=== PATIENT | female | born 1950 | race Caucasian/White ===

== ENCOUNTER → 2016-12-31 | Outpatient (CLI) | payer OTHER | LOC: FIMAGING 12:21 | DX: Z12.31 Encounter for screening mammogram for malignant neoplasm of breast (principal) | CPT/HCPCS: G0202 ==

== ENCOUNTER 2017-01-22 13:55 | Emergency (ER) | payer OTHER ==
[2017-01-22 14:06] VITALS: RESP 16
--- NOTE | 2017-01-22 14:07 | CPEKG ---
Heart Rate: 84 RR Interval: 714 P-R Interval: 144 QRSD Interval: 86 QT Interval: 384 QTC Interval: 454 P [place]: -5 QRS [place]: 26 T Wave [place]: -49 EKG Severity - BORDERLINE ECG - EKG Impression: SINUS RHYTHM EKG Impression: BORDERLINE T ABNORMALITIES, INFERIOR LEADS Electronically Signed By: Beverly Banegas 22-Jan-2017 15:41:56
--- NOTE | 2017-01-22 14:13 | EDPHY ---
H & P Stated Complaint: CP, R SIDED NECK PAIN, SOB Time Seen by Provider: 01/22/17 14:03 HPI/ROS: CHIEF COMPLAINT: Right chest pain HISTORY OF PRESENT ILLNESS: The patient is a 66-year-old female presenting with acute right neck, shoulder, and chest pain. The patient developed a pain to the right side of her neck. This pain remained constant throughout the day and progressively worsened. The pain now radiates into her right shoulder and chest. She states it is a freezing pain "like when you eat ice cream too fast". The patient has a slight cough which has been ongoing for several months. She notes some shortness of breath. She denies fever or recent sickness. No right arm numbness or weakness. She took 600mg Ibuprofen prior to arrival. The patient had a cardiac catheterization in 2009 that did not show any significant coronary artery disease or atherosclerosis. She was started on a diuretic following that study with the thought that a diuretic would lower her right and left heart pressures and help with her shortness of breath. REVIEW OF SYSTEMS: A 10 point review of systems was performed and is negative with the exception of the elements mentioned in the history of present illness. Source: Patient Exam Limitations: No limitations - Personal History Current Tetanus Diphtheria and Acellular Pertussis (TDAP): Yes Tetanus Vaccine Date: 2010 - Medical/Surgical History Hx Asthma: Yes Hx Chronic Respiratory Disease: No Hx Diabetes: No Hx Cardiac Disease: No Hx Renal Disease: No Hx Cirrhosis: No Hx Alcoholism: No Hx HIV/AIDS: No Hx Splenectomy or Spleen Trauma: No Other PMH: Recent back injury, hypertension, allergies, mood disorder/depression , anxiety, Crohn's disease. Past Surgical History: Cholecystectomy, Tonsilectomy, Hysterectomy - Family History Significant Family History: No pertinent family hx (No family history of coronary artery disease.) - Social History Smoking Status: Never smoked Additional Social History: Retired. 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 Patient lives alone with cat named Christine. No tobacco or alcohol use. - Physical Exam Exam: General Appearance: Alert, no acute distress. Eyes: Pupils equal and round, no conjunctival injection, no discharge. ENT, Mouth: Mucous membranes are moist, no oropharyngeal erythema or edema. Neck: No lymphadenopathy, supple. No jugular venous distention. Respiratory: Lungs are clear to auscultation; no wheezes, rales, or rhonchi. Cardiovascular: Regular rate and rhythm; no murmur, rub, or gallop. Gastrointestinal: Abdomen is soft and non tender, no masses or organomegaly, bowel sounds normal. Skin: Warm and dry, no rashes, normal color. Back: Nontender to palpation over the thoracolumbar spine. Extremities: No lower extremity edema, no calf tenderness or swelling. Neurological: Alert and oriented. Moving all four extremities easily and equally. Psychiatric: Normal affect. Constitutional: Initial Vital Signs Temperature (C) 36.3 C 01/22/17 14:05 Heart Rate 86 01/22/17 14:05 Respiratory Rate 16 01/22/17 14:05 Blood Pressure 129/92 H 01/22/17 14:05 O2 Sat (%) 94 01/22/17 14:05 O2 Delivery Mode Room Air Allergies/Adverse Reactions: propranolol [Propranolol] Allergy (Intermediate, Verified 01/22/17 14:08) COGNITIVE CHANGES divalproex sodium [From Depakote] Allergy (Mild, Verified 01/22/17 14:08) NAUSEA ibuprofen Allergy (Verified 01/22/17 14:08) Other-Enter Comments Home Medications: Medication Instructions Recorded Buspar (*) 01/22/17 Cetirizine 01/22/17 Cymbalta 01/22/17 Estradiol 01/22/17 Hydrochlorothiazide 01/22/17 Lialda 01/22/17 Wellbutrin Sr 01/22/17 Medical Decision Making - Diagnostics EKG Interpretation: The 12 lead EKG was interpreted by myself. See hard copy and/or "tracemaster" electronic copy for interpretation: Borderline T-wave abnormalities. 2nd EKG was performed. 12 lead EKG is interpreted in Trace master View by emergency department physician. No acute ischemic changes. Imaging Results: Imaging Impressions Chest X-Ray 01/22/17 14:16 Impression: No significant radiographic abnormality. Specifically, a source for chest pain is not identified. ED Course/Re-evaluation: The patient is a 66-year-old female presenting with acute right neck and chest pain. The patient reports a constant pain in the right side of her neck and jaw that radiates into her right chest. No associated right arm weakness or numbness. No midline posterior neck pain. Patient has a normal exam. She received 324mg Aspirin PO in the ED. Plan for cardiac workup. Plan to check troponin and lab work. Chest x-ray is pending. Right-sided chest and jaw pain persists. Repeat EKG without acute ischemic changes. Troponin is normal. She reports to me at around 3:00 p.m. that the pain is pleuritic. D-dimer ordered. D-dimer is normal. I do not suspect PE. Chest x-ray does not show evidence of infection/infiltrate. No pneumothorax. I spoke with the patient at some length. She does continue with some right upper chest pain that extends into her neck and lower jaw. A re-examined her teeth, as she is scheduled to have the dental cap replaced this week. They is no evidence of dental infection and no pain with percussion over teeth on the right. She does not have neck pain or radicular signs/symptoms. I would not expect this right-sided pain to be cardiac in etiology, however, that remains a possibility. Her HEART score is 2, giving her a 1.7% risk of a major cardiac event within 6 weeks. She and I discussed this study. I offered overnight hospitalization with serial cardiac enzymes. She is not interested in hospitalization and feels comfortable returning home. I think that she is safe to do so. She understands the danger signs that should prompt her to call 911. She will follow up with her primary care physician within the next 72 hours. Differential Diagnosis: Chest pain including but not limited to myocardial ischemia, pulmonary embolus, chest wall pain, pleural inflammation and pulmonary infectious causes. - Data Points Laboratory Results: Laboratory Results 01/22/17 14:17 01/22/17 14:17 01/22/17 01/22/17 01/22/17 14:17 14:17 14:17 WBC 8.82 10^3/uL 10^3/uL (3.80-9.50) RBC 4.93 10^6/uL 10^6/uL (4.18-5.33) Hgb 13.8 g/dL g/dL (12.6-16.3) Hct 40.6 % % (38.0-47.0) MCV 82.4 fL fL (81.5-99.8) MCH 28.0 pg pg (27.9-34.1) MCHC 34.0 g/dL g/dL (32.4-36.7) RDW 14.5 % % (11.5-15.2) Plt Count 283 10^3/uL 10^3/uL (150-400) MPV 9.5 fL fL (8.7-11.7) Neut % (Auto) 71.6 % % (39.3-74.2) Lymph % (Auto) 21.7 % % (15.0-45.0) [place] % (Auto) 6.1 % % (4.5-13.0) Eos % (Auto) 0.1 % L % (0.6-7.6) Baso % (Auto) 0.3 % % (0.3-1.7) Nucleat RBC Rel Count 0.0 % % (0.0-0.2) Absolute Neuts (auto) 6.31 10^3/uL 10^3/uL (1.70-6.50) Absolute Lymphs (auto) 1.91 10^3/uL 10^3/uL (1.00-3.00) Absolute Monos (auto) 0.54 10^3/uL 10^3/uL (0.30-0.80) Absolute Eos (auto) 0.01 10^3/uL L 10^3/uL (0.03-0.40) Absolute Basos (auto) 0.03 10^3/uL 10^3/uL (0.02-0.10) Absolute Nucleated RBC 0.00 10^3/uL 10^3/uL (0-0.01) Immature Gran % 0.2 % % (0.0-1.1) Immature Gran # 0.02 10^3/uL 10^3/uL (0.00-0.10) D-Dimer < 0.27 ug/mLFEU ug/mLFEU (0.00-0.50) Sodium 140 mEq/L mEq/L (134-144) Potassium 3.3 mEq/L L mEq/L (3.5-5.2) Chloride 100 mEq/L mEq/L (97-110) Carbon Dioxide 26 mEq/l mEq/l (22-31) Anion Gap 14 mEq/L mEq/L (8-16) BUN 15 mg/dL mg/dL (7-23) Creatinine 0.8 mg/dL mg/dL (0.6-1.0) Estimated GFR > 60 Glucose 109 mg/dL H mg/dL (70-100) Calcium 8.8 mg/dL mg/dL (8.5-10.4) Troponin I < 0.012 ng/mL ng/mL (0-0.034) Medications Given: Discontinued Medications Aspirin (Aspirin) 324 mg PO EDNOW ONE Stop: 01/22/17 14:16 Last Admin: 01/22/17 14:21 Dose: 324 mg Departure - Departure Disposition: Home, Routine, Self-Care Clinical Impression: Chest pain Qualifiers: Chest pain type: unspecified Qualified Code(s): R07.9 - Chest pain, unspecified Condition: Good Instructions: Chest Pain (ED) Additional Instructions: If you develop fever, shortness of breath, worsening chest pain, change in location of your pain, lightheadedness or dizziness, nausea, any new or concerning symptoms--you should call 911 and be re-evaluated. I recommend that you follow up with your primary care provider within the next 72 hours. Call tomorrow to schedule an appointment. Referrals: Amrita Salazar, INCREMENT MANAGER [Primary Care Provider] - As per Instructions Report Scribed for: Beverly Banegas Report Scribed by: Steph Parnell Date of Report: 01/22/17 Time of Report: 14:13 Physician Review and Approval Statement: 01/22/17 14:36 Portions of this note were transcribed by the spanish medical interpreter. I, Dr. Beverly Banegas, personally performed the history, physical exam, and medical decision- making; and confirmed the accuracy of the information in the transcribed note.
[2017-01-22] MEDS ORDERED: ASPIRIN 81 MG CHEWABLE TAB PO ONE (14:15)
[2017-01-22 14:26] LABS: % IMMATURE GRANULYOCYTES 0.2 % (0.0-1.1); ABSOLUTE IMMATURE GRANULOCYTES 0.02 10^3/uL (0.00-0.10); ADD DIFF? NO; ADD MORPH? NO; ADD SCAN? NO; ATYPICAL LYMPHOCYTE FLAG 0 (0-99); FRAGMENT RBC FLAG 0 (0-99); HEMATOCRIT 40.6 % (38.0-47.0); HEMOGLOBIN 13.8 g/dL (12.6-16.3); LEFT SHIFT FLG 0 (0-99); LIPEMIA HEMOLYSIS FLAG 90 (0-99); MEAN CELL VOLUME 82.4 fL (81.5-99.8); MEAN PLATELET VOLUME 9.5 fL (8.7-11.7); PLATELET CLUMPS FLAG 0 (0-99); PLATELET COUNT 283 10^3/uL (150-400); RED BLOOD CELL COUNT 4.93 10^6/uL (4.18-5.33); RED CELL DISTRIBUTION WIDTH 14.5 % (11.5-15.2)
[2017-01-22 14:43] LABS: ANION GAP 14 mEq/L (8-16); CALCIUM 8.8 mg/dL (8.5-10.4); CARBON DIOXIDE 26 mEq/l (22-31); CHLORIDE 100 mEq/L (97-110); CREATININE 0.8 mg/dL (0.6-1.0); GLOMERULAR FILTRATION RATE > 60; GLUCOSE 109 mg/dL (70-100); POTASSIUM 3.3 mEq/L (3.5-5.2); SODIUM 140 mEq/L (134-144)
[2017-01-22 14:55] LABS: TROPONIN I < 0.012 ng/mL (0-0.034)
--- NOTE | 2017-01-22 15:47 | CPEKG ---
Heart Rate: 79 RR Interval: 759 P-R Interval: 140 QRSD Interval: 84 QT Interval: 376 QTC Interval: 432 P [place]: -13 QRS [place]: 52 T Wave [place]: 267 EKG Severity - NORMAL ECG - EKG Impression: SINUS RHYTHM Electronically Signed By: Amara Coles 24-Jan-2017 14:10:35
[2017-01-22 16:15] VITALS: BP 138/72; PULSE 80; TEMP 97.7; O2SAT 94
== END 2017-01-22 16:15 | disposition home or self-care (01) ==
LOC: CED 13:55
DX: R07.9 Chest pain, unspecified (principal); I10 Essential (primary) hypertension
CPT/HCPCS: 71020-PO; 80048-PO; 84484-PO; 85025-PO; 85378-PO

== ENCOUNTER → 2018-02-26 | Outpatient (CLI) | payer OTHER, MEDICARE | LOC: FIMAGING 11:22 | PROVIDERS: ATTEND Nurse Practitioner | DX: Z12.31 Encounter for screening mammogram for malignant neoplasm of breast (principal) ==

== ENCOUNTER → 2018-06-02 | Outpatient (CLI) | payer OTHER, MEDICARE | LOC: CIMAGING 10:37 | PROVIDERS: ATTEND Nurse Practitioner | DX: R93.7 Abnormal findings on diagnostic imaging of other parts of musculoskeletal system (principal) | CPT/HCPCS: 72100-PO; 72170-PO ==

== ENCOUNTER 2018-06-27 17:55 | Emergency (ER) | payer OTHER, MEDICARE ==
[2018-06-27] MEDS ORDERED: NS 500 ML IV ONE (18:26)
--- NOTE | 2018-06-27 18:44 | EDPHY ---
H & P Stated Complaint: irregular heart beat Time Seen by Provider: 06/27/18 18:12 HPI/ROS: CHIEF COMPLAINT: Palpitations HISTORY OF PRESENT ILLNESS: 67-year-old female presents emergency department reporting that for the last 3-4 days she has had multiple episodes of palpitations. She describes a regular heart rate and then a pause and a delayed before the next beat. She also describes episodes where her heart feels that it is beating fast for 2-3 beats. She has not had any chest pain, shortness of breath, lightheadedness, dizziness, or fainting during these episodes. She has not had prolonged episodes of palpitations. She does report she has a history of atrial fibrillation which happened a number of years ago and knee is episodes of palpitations are not as prolonged as her atrial fibrillation episode. She does not take any anticoagulants. Patient denies fevers or chills. She does have a history of asthma and states she has been feeling short of breath, perhaps secondary to medication of a burst pipe in her home. She has been using her albuterol inhaler more frequently. She also has a history of Crohn's disease but does not use steroids for that. No fever, chills, chest pain, vomiting, diarrhea, urinary complaints, headache, lightheadedness. REVIEW OF SYSTEMS: A comprehensive 10 system review of systems was reviewed and is otherwise negative aside from elements mentioned in the history of present illness. PAST MEDICAL HISTORY: Crohn's disease, asthma, depression, anxiety. No history of DVTs or PEs. No family history of DVTs or PEs. SOCIAL HISTORY: Nonsmoker, no alcohol, no illicit drugs. VITAL SIGNS Reviewed by me. Regular rhythm noted on the monitor with occasional PACs. GENERAL: Well-developed, well-nourished, resting comfortably in no respiratory distress. Slightly anxious. HEENT: Atraumatic. Eyes: No icterus, no injection. Mouth: moist mucous membranes. No erythema or lesions. Neck: supple with no adenopathy. LUNGS: Clear to auscultation bilaterally, no wheezes, rhonchi or rales. CARDIAC: Regular rate and rhythm, no rubs, murmurs or gallops. ABDOMEN: Soft, nontender, nondistended, bowel sounds normal. BACK: No CVA tenderness. EXTREMITIES: No trauma. No edema. Range of motion is normal throughout. NEURO: Alert and oriented, grossly nonfocal. SKIN: Warm and dry, no rash. PSYCHIATRIC: Normal mentation, no agitation. - Personal History Current Tetanus Diphtheria and Acellular Pertussis (TDAP): Yes Tetanus Vaccine Date: 2010 - Medical/Surgical History Hx Asthma: Yes Hx Chronic Respiratory Disease: No Hx Diabetes: No Hx Cardiac Disease: No Hx Renal Disease: No Hx Cirrhosis: No Hx Alcoholism: No Hx HIV/AIDS: No Hx Splenectomy or Spleen Trauma: No Other PMH: Recent back injury, hypertension, allergies, mood disorder/depression , anxiety, Crohn's disease, sleep apnea. Past Surgical History: Cholecystectomy , Tonsilectomy, Hysterectomy - Social History Smoking Status: Never smoked Constitutional: Initial Vital Signs Temperature (C) 36.6 C 06/27/18 18:03 Heart Rate 84 06/27/18 18:03 Respiratory Rate 16 06/27/18 18:03 Blood Pressure 148/85 H 06/27/18 18:03 O2 Sat (%) 96 06/27/18 18:03 O2 Delivery Mode Room Air Allergies/Adverse Reactions: propranolol [Propranolol] Allergy (Intermediate, Verified 06/27/18 18:08) COGNITIVE CHANGES divalproex sodium [From Depakote] Allergy (Mild, Verified 06/27/18 18:08) NAUSEA ibuprofen Allergy (Verified 06/27/18 18:08) Other-Enter Comments Home Medications: Medication Instructions Recorded Buspar (*) 01/22/17 Cetirizine 01/22/17 Cymbalta 01/22/17 Estradiol 01/22/17 Hydrochlorothiazide 01/22/17 Wellbutrin Sr 01/22/17 Albuterol 06/27/18 Balsalazide Disodium 06/27/18 Estradiol 06/27/18 Ranitidine HCl 06/27/18 Medical Decision Making - Diagnostics EKG Interpretation: 12-LEAD EKG: Please see the full report in Trace Master. My interpretation: Sinus rhythm, PACs couplets. Imaging Results: Impression: No acute pulmonary disease. Dictated By: Elvis Melvin ED Course/Re-evaluation: EKG obtained, demonstrating sinus rhythm with PACs in couplets. IV placed. Electrolytes, troponin, CBC, D-dimer ordered. 500 cc of normal saline administered. Potassium is 3.0. Patient received 40 mEq of potassium chloride. Troponin is negative. D-dimer is negative. Chest x-ray ordered for the patient's complaints of shortness of breath. No acute pulmonary findings in the chest. Patient re-evaluated. The discussed the results of the imaging studies as well as the results of the EKG and chest x-ray. Patient noted to have no a arrhythmias on the monitor during her emergency department course except for PACs. I encourage the patient to increase her intake of potassium containing foods such as bananas, to follow up with her primary care physician for re-evaluation of her electrolytes in light of the fact that she is on a low dose of a diuretic , and follow up as well for further evaluation of her palpitations. She tells me that she has an appointment early next week with her PCP. She is comfortable being discharged home. Differential Diagnosis: Differential diagnoses for the patient's sensation of palpitations was considered including but not limited to sinus tachycardia, PACs, PVCs, SVT, atrial fibrillation, atrial flutter, anxiety, panic attack. - Data Points Medications Given: Discontinued Medications Sodium Chloride (Ns) 500 mls @ 1,000 mls/hr IV EDNOW ONE PRN Reason: Protocol Stop: 06/27/18 18:55 Last Admin: 06/27/18 18:54 Dose: 500 mls Potassium Chloride (Klor-Con) 40 meq PO ONCE ONE Stop: 06/27/18 19:09 Last Admin: 06/27/18 19:15 Dose: 40 meq Point of Care Test Results: CBC CBC Collection Date 06/27/18 CBC Collection Time 18:45 WBC 8.5 RBC 4.68 HGB 13.6 HCT 39.7 PLT 259 Neut # 6.3 Neut 73.8 LYMPH # 1.8 LYMPH 21.0 Other WBC # 0.4 Other WBC 5.2 MCV 84.8 Chemistry 06/27/18 06/27/18 18:53 18:52 POC Sodium 139 mEq/L mEq/L (135-145) POC Potassium 3.0 mEq/L L mEq/L (3.3-5.0) POC Chloride 100.0 mEq/L mEq/L (97-110) POC Total CO2 26 mEq/L mEq/L (22-31) POC BUN 11 mg/dL mg/dL (7-23) POC Creatinine 0.9 mg/dL mg/dL (0.6-1.0) POC Glucose 92 mg/dL mg/dL (70-100) POC Calcium 9.2 mg/dL mg/dL (8.5-10.4) POC Troponin I 0.00 ng/mL ng/mL (0.00-0.08) D-Dimer D-Dimer Collection Date 06/27/18 D-Dimer Collection Time 18:45 D-Dimer (ng/ml) Less than 100 Departure - Departure Disposition: Home, Routine, Self-Care Clinical Impression: Palpitations, Hypokalemia due to loss of potassium Condition: Good Instructions: Heart Palpitations (ED), Premature Atrial Contractions (ED) Additional Instructions: Please follow up with your primary care physician regarding your potassium level. Eat a well-balanced diet including broccoli and bananas. Please follow up with your primary care physician as previously scheduled next week. A Holter monitor may be advisable. 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 Referrals: Amrita Salazar NP [Primary Care Provider] - As per Instructions
[2018-06-27] MEDS ORDERED: POTASSIUM CL 20 MEQ TAB PO ONE (19:08)
[2018-06-27 20:33] VITALS: BP 138/86
--- NOTE | 2018-06-28 22:38 | CPEKG ---
Test Reason : OPEN Blood Pressure : / mmHG Vent. Rate : 082 BPM Atrial Rate : 083 BPM P-R Int : 145 ms QRS Dur : 093 ms QT Int : 377 ms P-R-T Axes : 001 046 -06 degrees QTc Int : 441 ms Sinus rhythm Atrial premature complexes in couplets Confirmed by Amara Coles ([id number]) on 06/28/2018 10:37:13 PM Referred By: Confirmed By:Amara Coles
== END 2018-06-27 20:32 | disposition home or self-care (01) ==
LOC: CED 17:55
DX: R00.2 Palpitations (principal); E87.6 Hypokalemia; E86.9 Volume depletion, unspecified
CPT/HCPCS: 71046-PO; 80048-PO; 84484-PO

== ENCOUNTER → 2018-07-31 | Outpatient (CLI) | payer OTHER, MEDICARE | LOC: BHFA 11:30 | PROVIDERS: ATTEND Internal Medicine Cardiovascular Disease | DX: I48.91 Unspecified atrial fibrillation (principal) ==

== ENCOUNTER 2018-11-03 17:09 | Emergency (ER) | payer OTHER, MEDICARE ==
--- NOTE | 2018-11-03 17:11 | EDPHY ---
H & P Time Seen by Provider: 11/03/18 17:11 HPI/ROS: HPI CHIEF COMPLAINT: Palpitations HISTORY OF PRESENT ILLNESS: 68-year-old female, does have a significant medical history for Crohn's disease, and states she had a history of AFib back in 2010 however currently not on any rate control or blood thinners. Not currently being treated for AFib. She states around 3:00 This afternoon or approximately 2.5 hr ago she developed palpitations. She states her heart rate was rather regular and then had fast irregular beat. Denies any chest pain, denies shortness of breath, does states she feels anxious. She called the nurse hotline on her insurance and was recommended to come to the emergency room. She denies any pleuritic pain. Currently she states that she feels anxious, dry mouth. She denies any recent illness, denies vomiting, denies diarrhea, denies shortness of breath, denies chest pain or chest pressure denies pleuritic pain. Denies abnormal swelling or recent travel. Past Medical History: Significant medical history for Crohn's disease, asthma, depression, anxiety States negative Cardiac Cath 2010, negative Echo. States Recently saw Dr. Christine Mcgrath for palpitations had a 48 hour holter, which she believes to be normal. Past Surgical History: No recent surgery Social History: Denies drugs alcohol tobacco. Family History: Noncontributory, denies cardiovascular disease in her family. ROS REVIEW OF SYSTEMS: 10 Systems were reviewed and negative with the exception of the elements mentioned in the history of present illness. Exam Constitutional nontoxic no acute distress, triage nursing summary reviewed, vital signs reviewed, awake/alert. Eyes normal conjunctivae and sclera, EOMI, PERRLA. HENT normal inspection, atraumatic, moist mucus membranes, no epistaxis, neck supple/ no meningismus, no raccoon eyes. Respiratory clear to auscultation bilaterally, normal breath sounds, no respiratory distress, no wheezing. Cardiovascular rate normal, regular rhythm, no murmur, no edema, distal pulses normal. Gastrointestinal soft, non-tender, no rebound, no guarding, normal bowel sounds, no distension, no pulsatile mass. Genitourinary no CVA tenderness. Musculoskeletal no midline vertebral tenderness, full range of motion, no calf swelling, no tenderness of extremities, no meningismus, good pulses, neurovascularly intact. Skin pink, warm, & dry, no rash, skin atraumatic. Neurologic awake, alert and oriented x 3, AAOx3, moves all 4 extremities equally, motor intact, sensory intact, CN II-XII intact, normal cerebellar, normal vision, normal speech. Psychiatric normal mood/affect. Heme/Lymph/Immune no lymphadenopathy. Differential Diagnosis: Differential diagnosis includes but is not limited to: Cardiac arrhythmia, AFib, SVT, AVNRT, Sinus arrhythmia, ACS, atypical chest pain, pneumothorax, pneumonia, pulmonary embolism, aortic dissection, congestive heart failure, tumor, musculoskeletal pain, esophageal pain, GERD, peptic ulcer disease, pancreatitis Medical Decision Making: Plan for this patient production helper, IV establishment, IV fluid bolus, basic electrolytes, CBC and point care troponin chest x-ray, EKG. Re-evaluation: EKG interpretation by me on record in [facility] system. Impression time of EKG 1718, sinus rhythm rate of 82, no ST elevation ST depression however premature atrial complex present. Otherwise sinus rhythm no signs of cardiac arrhythmia or acute ischemia. When I compare this patient's EKG today to her EKG dated 06/27/2018 it is unchanged morphology. Ddimer negative Trop Negative EKG unchanged from previous ekgs, without ischemia. Lytes appear okay. CBC okay. EKG interpretation by me on record in [facility] system. Impression time of EKG 2028 sinus rhythm rate of 76, no signs of acute ischemia no signs of cardiac arrhythmia. Unchanged from previous EKG today as well as the EKG in 06/27/2018. Patient re-evaluated 2030: Patient is resting comfortably. No chest pain or shortness of breath. Has no complaints. She has been on the production helper for over 4hrs and has been no signs of cardiac arrhythmia. Patient does not have any chest pain or shortness of breath. Patient's initial troponin is negative Negative D-dimer. Patient has had 2 EKGs here in emergency room that are unremarkable for acute ischemia or cardiac arrhythmia. Unchanged from previous EKG She has not had any palpitations, chest pain, or shortness of breath while in the emergency room Patient is asked multiple times to be discharged from the ER. I do recommend she follows up closely with Cardiology for outpatient evaluation, palpitations. Additionally patient she understands return to the emergency room if she develops chest pain, shortness of breath, palpitations, passing out or not doing well. Patient is comfortable this plan. 2039:Repeat Trop 0.00 2150: Discussed with Neno Tinajero, cardiology. Looked up in [place], Negative cath in 2009. Normal Echo. Per Dr. Huntley. PCP ordered new echo not done yet for palpitations. 2152: Long discussion with the patient I did offer hospital admission for observation overnight for palpitations and she is very anxious however she has declined this. She wants to go home. She reports been no chest pain or shortness of breath. States she feels fine. Discussed return precautions with her she understands return emergency room if she develops worsening shortness of breath, chest pain, palpitations, not doing well. Follow up with her PCP and Cardiology Source: Patient - Personal History Tetanus Vaccine Date: 2010 - Medical/Surgical History Hx Asthma: Yes Hx Chronic Respiratory Disease: No Hx Diabetes: No Hx Cardiac Disease: No Hx Renal Disease: No Hx Cirrhosis: No Hx Alcoholism: No Hx HIV/AIDS: No Hx Splenectomy or Spleen Trauma: No Other PMH: Recent back injury, hypertension, allergies, mood disorder/depression , anxiety, Crohn's disease, sleep apnea. Past Surgical History: Cholecystectomy , Tonsilectomy, Hysterectomy - Social History Smoking Status: Never smoked Constitutional: Initial Vital Signs Temperature (C) 36.5 C 11/03/18 17:26 Heart Rate 104 H 11/03/18 17:26 Respiratory Rate 16 11/03/18 17:26 Blood Pressure 149/81 H 11/03/18 17:26 O2 Sat (%) 95 11/03/18 17:26 O2 Delivery Mode Room Air Allergies/Adverse Reactions: propranolol [Propranolol] Allergy (Intermediate, Verified 11/03/18 17:23) COGNITIVE CHANGES divalproex sodium [From Depakote] Allergy (Mild, Verified 11/03/18 17:23) NAUSEA ibuprofen Allergy (Verified 11/03/18 17:23) Other-Enter Comments Home Medications: Medication Instructions Recorded Buspar (*) 01/22/17 Cetirizine 01/22/17 Cymbalta 01/22/17 Estradiol 01/22/17 Hydrochlorothiazide 01/22/17 Wellbutrin Sr 01/22/17 Albuterol 06/27/18 Balsalazide Disodium 06/27/18 Ranitidine HCl 06/27/18 Medical Decision Making - Data Points Medications Given: Discontinued Medications Sodium Chloride (Ns) 1,000 mls @ 0 mls/hr IV ONCE ONE PRN Reason: Wide Open Stop: 11/03/18 17:14 Last Admin: 11/03/18 17:38 Dose: 1,000 mls Sodium Chloride (Ns) 1,000 mls @ 0 mls/hr IV EDNOW ONE; Wide Open PRN Reason: Protocol Stop: 11/03/18 19:22 Last Admin: 11/03/18 19:25 Dose: 1,000 mls Point of Care Test Results: CBC CBC Collection Date 11/03/18 CBC Collection Time 17:24 WBC 8.86 RBC 5.04 HGB 14.0 HCT 42.1 PLT 280 Neut # 6.25 Neut 70.5 LYMPH # 1.81 LYMPH 20.4 MCV 83.5 Chemistry 11/03/18 11/03/18 11/03/18 20:32 17:31 17:28 POC Sodium 145 mEq/L mEq/L (135-145) POC Potassium 3.3 mEq/L mEq/L (3.3-5.0) POC Chloride 108.0 mEq/L mEq/L (97-110) POC Total CO2 28 mEq/L mEq/L (22-31) POC BUN 24 mg/dL H mg/dL (7-23) POC Creatinine 1.2 mg/dL H mg/dL (0.6-1.0) POC Glucose 104 mg/dL H mg/dL (70-100) POC Calcium 9.2 mg/dL mg/dL (8.5-10.4) POC Total Bilirubin 0.5 mg/dL mg/dL (0.1-1.4) POC AST 19 IU/L IU/L (14-46) POC ALT 13 IU/L IU/L (9-52) POC Alk Phosphatase 101 IU/L IU/L (38-126) POC Troponin I 0.00 ng/mL ng/mL 0.00 ng/mL ng/mL (0.00-0.08) (0.00-0.08) POC Total Protein 6.1 g/dL L g/dL (6.3-8.2) POC Albumin 3.1 g/dL L g/dL (3.5-5.0) D-Dimer D-Dimer Collection Date 11/03/18 D-Dimer Collection Time 17:24 D-Dimer (ng/ml) <100 Departure - Departure Disposition: Home, Routine, Self-Care Clinical Impression: Heart palpitations Condition: Good Instructions: Heart Palpitations (ED) Additional Instructions: 1. Drink lots of fluids stay well-hydrated 2. Rest. 3. Please follow up with Cardiology 4. Return to the emergency room if worsening symptoms. This includes palpitations, shortness of breath, chest pain. Referrals: Amrita Salazar NP [Primary Care Provider] - As per Instructions Christine Mcgrath MD [Medical Doctor] - As per Instructions
[2018-11-03] MEDS ORDERED: NS 1,000 ML IV ONE ×2 (17:13→19:21)
[2018-11-03 20:44] VITALS: BP 140/75
--- NOTE | 2018-11-08 07:34 | CPEKG ---
Test Reason : OPEN Blood Pressure : / mmHG Vent. Rate : 076 BPM Atrial Rate : 076 BPM P-R Int : 160 ms QRS Dur : 101 ms QT Int : 414 ms P-R-T Axes : 053 041 024 degrees QTc Int : 466 ms Sinus rhythm Low voltage, extremity leads Consider anterior infarct Confirmed by Jl Reese ([id number]) on 11/08/2018 7:33:28 AM Referred By: Jl Reese Confirmed By:Jl Reese
--- NOTE | 2018-11-08 07:34 | CPEKG ---
Test Reason : OPEN Blood Pressure : / mmHG Vent. Rate : 082 BPM Atrial Rate : 082 BPM P-R Int : 150 ms QRS Dur : 093 ms QT Int : 372 ms P-R-T Axes : 056 027 010 degrees QTc Int : 435 ms Sinus rhythm Atrial premature complex Consider anterior infarct Confirmed by Jl Reese ([id number]) on 11/08/2018 7:33:29 AM Referred By: Jl Reese Confirmed By:Jl Reese
== END 2018-11-03 22:37 | disposition home or self-care (01) ==
LOC: CED 17:09
DX: R00.2 Palpitations (principal); I10 Essential (primary) hypertension; K50.90 Crohn's disease, unspecified, without complications; E86.9 Volume depletion, unspecified
CPT/HCPCS: 71045-PO; 80053-ER; 84484-ER; 96360-ER; 96361-ER; 99284-ER

== ENCOUNTER → 2018-11-10 | Outpatient (CLI) | payer OTHER, MEDICARE | LOC: BHFA 13:00 | PROVIDERS: ATTEND Internal Medicine Cardiovascular Disease | DX: R06.02 Shortness of breath (principal) | CPT/HCPCS: 78452; 93017; A9500; J2785 ==

== ENCOUNTER → 2018-11-18 | Outpatient (CLI) | payer OTHER, MEDICARE | LOC: BHFA 11:30 | PROVIDERS: ATTEND Internal Medicine Cardiovascular Disease | DX: R06.02 Shortness of breath (principal) ==